=== PATIENT | male | born 1945 | race Caucasian/White ===

== ENCOUNTER 2016-06-26 20:35 | Emergency (ER) | payer MEDICARE, OTHER ==
[2016-06-26] MEDS ORDERED: DIAZEPAM 5 MG/ML SYRG IM ONE (20:59)
[2016-06-26] MEDS ORDERED: KETOROLAC TROMETHAMINE 60 MG/2 ML VIAL IM ONE ×2 (20:59→21:04)
[2016-06-26] MEDS ORDERED: DIAZEPAM 5 MG/ML SYRG ONE (21:03)
--- OUTSIDE RECORDS SUMMARY | 2016-06-26 21:36 | XMS REPORT | Continuity of Care Document ---
:1945 Author Organization [facility] ([facility]) Address [address] [place] [address] Phone [phone] Care Team Providers Name Role Phone Savannah Whitaker Primary Care Provider [phone] Source Comments This disclosure is being made pursuant to the Care Everywhere program, applicable federal and state laws, and may not contain all informaitonavailable regarding this patient.[facility] ([facility]) Active Allergies and Adverse Reactions Allergen Noted Date Severity Reactions Comments Latex, Natural Rubber Blisters Current Medications Prescription Sig. Disp. Refills Start Date End Date Status MULTIVITAMINS take 1 Cap by Active (MULTIVITAMIN PO) mouth daily. acetaminophen 500 mg Take 500 mg by Active tablet mouth every 6 hours as needed. B INFANTIS/B ANI/B ANA/B Take by mouth. Active BIFID (PROBIOTIC 4X PO) SERTraline 100 mg tablet Take 50 mg by Active mouth daily. 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 Resolved Problems Problem Noted Date Resolved Date Pain in limb 07/07/2007 09/04/2013 Immunizations Name Dates Previously Given Next Due Hepatitis B, unspecified 07/07/2007 Pneumococcal, unspecified 07/07/2007 Social History Tobacco Use Types Packs/Day Years Used Date Former Smoker Last Filed Vital Signs Vital Sign Reading Time Taken Blood Pressure 155/80 10/03/2011 1:07 PM CDT Pulse 81 10/03/2011 1:07 PM CDT Temperature 36 C (96.8 F) 10/03/2011 1:07 PM CDT Respiratory Rate 18 09/27/2009 3:45 PM CDT Height 1.78 m (5' 10.08") 10/15/2009 9:06 AM CDT Weight 68 kg (149 lb 14.6 oz) 10/15/2009 9:06 AM CDT Body Mass Index 21.46 10/15/2009 9:06 AM CDT Oxygen Saturation 94% 09/27/2009 3:45 PM CDT Plan of Care Health Maintenance Due Date Last Done Comments Tdap Vaccine 07/10/1956 Lipid Disorder Screening 07/10/1961 Td Vaccine 07/10/1961 Colonoscopy 07/10/1993 Prostate Cancer Screening 07/10/1993 Zoster Vaccine 2003 Hepatitis B Vaccine (2 of 3 - Primary 08/04/2007 07/07/2007 Series) Pneumococcal Vaccine (1 of 2 - PCV13) 07/10/2008 HCC Annual Coding 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
[2016-06-26] MEDS ORDERED: HYDROcodone/ACETAMINOPHEN 1 EACH TABLET PO ONE ×2 (21:48→22:03)
[2016-06-26] MEDS ORDERED: HYDROcodone/ACETAMINOPHEN 1 EACH TABLET ONE ×2 (21:57→22:10)
--- NOTE | 2016-06-26 21:59 | ERNOTE ---
Medical Problem HPI - Narrative Date of Service: 06/26/16 - General Chief Complaint: Neck Pain/Injury Time Seen by Provider: 06/26/16 20:50 Source: patient, RN notes reviewed Exam Limitations: no limitations - Immun/Allergies/Home Medications Immunizations: IMMUNIZATION HX Immunizations Up to Date Yes History of Influenza Vaccine No Hx Pneumococcal Vaccination No Allergies/Adverse Reactions: Allergies latex Allergy (Mild, Verified 04/17/15 14:22) Home Medications: HOME MEDICATIONS Sertraline HCl [Zoloft] 50 mg PO DAILY #30 tablet 10/17/13 [Last Taken 04/15/15] Aspirin [Lo-Dose Aspirin EC] 81 mg PO DAILY 06/26/16 [Last Taken Unknown] Cholecalciferol (Vitamin D3) [Vitamin D] 2,000 unit PO DAILY 06/26/16 [Last Taken Unknown] Cyclobenzaprine HCl [Flexeril] 10 mg PO TID PRN #30 tab 06/26/16 [Last Taken Unknown] HYDROcodone/ACETAMINOPHEN [Linwood 5-325] 1 - 2 tab PO Q6H PRN #20 tab 06/26/16 [ Last Taken Unknown] Ciprofloxacin HCl [Cipro] 500 mg PO BID #20 tab 06/27/16 [Last Taken Unknown] oxyCODONE HCL/ACETAMINOPHEN [Percocet 5 MG/325 MG] 1 tab PO QID #14 tablet 06/27 [Last Taken Unknown] - History of Present History Narrative: 71 y/o male ambulatory to the ED with neck pain that began without incident 2 days ago and reports that it has now "locked up" on him. He also reports a headache. He has not been taking anything for his symptoms. Date (Duration): 06/24/16 Timing: constant, getting worse Severity: severe Modifying Factors - (Improves): Present: rest Modifying Factors - (Worsens): Present: movement Review of Systems - Review of Systems Constitutional: Absent: recent illness, fever, chills EYE: Absent: eye pain, vision changes ENT: Absent: ear pain, nose congestion, sore throat Respiratory: Absent: shortness of breath, cough Cardiology: Absent: chest pain, palpitations Gastrointestinal/Abdominal: Absent: nausea, vomiting, abdominal pain, eating less, drinking less Genitourinary: Present: no symptoms reported Musculoskeletal: Present: muscle pain, neck pain. Absent: back pain, joint pain Skin: Absent: rash, lesions, lumps Neurological: Present: headache. Absent: dizziness/light-headedness, weakness, numbness, tingling Endocrine: Present: no symptoms reported Hematologic/Lymphatic: Present: no symptoms reported Psych: Present: no symptoms reported - Patient's Past Medical History Patient History - Medical: No pertinent hx Patient History - Cardiac/Respiratory: Deep Vein Thrombosis Patient History - Cancer: No Hx of Cancer Patient History - Surgical Procedures: Appendectomy, Back Surgery, Pneumothorax , Orthopedic Patient History - Other: None - Social History Living Situations: spouse Abuse History: No History of abuse Psych History: No pertinent hx Does anyone smoke in the home?: No Smoking Status: Former smoker Alcohol Use: none Drug Use: none - Immunizations Immunizations Up to Date: Yes Hx Pneumococcal Vaccination: No History of Influenza Vaccine: No Physical Exam - Physical Exam General Appearance: Present: wd/wn, alert, no apparent distress, other - noted to be uncomfortable Eye Exam: Normal inspection: bilateral, PERRL: bilateral Ears, Nose, Throat: Present: normal ENT inspection Neck: Present: supple, limited range of motion, tender lateral Respiratory: Present: no respiratory distress, normal breath sounds, no accessory muscle use, lungs clear Cardiovascular/Chest: Present: regular rate, rhythm, no murmur, normal peripheral pulses Back Exam: Present: normal inspection, no vertebral tenderness Extremity Exam: Present: normal inspection, normal range of motion Neurological Exam: Present: alert, oriented, normal mood/affect, no motor/ sensory deficits Skin Exam: Present: normal color, warm/dry ED Progress - Vital Signs Patient's Vital Signs:: I have reviewed the patient's vital signs. Vital Signs: Vital Signs 06/26/16 20:36 Temperature 36.4 C L Pulse Rate 60 Respiratory 14 Rate Blood Pressure 147/92 O2 Sat by Pulse 98 Oximetry - Progress/Reassessment Chief Complaint: Neck Pain/Injury Progress:: Improved Departure - Departure Clinical Impression: Neck pain, acute Disposition: Home self-care Condition: Stable Instructions: Cervical Sprain, [id number], Form - Excuse from Work, School, or Physical Activity Additional Instructions: Ice or heat to sore area as needed Do not take Tylenol with Linwood Linwood may cause drowsiness, dizziness, nausea, constipation Flexeril will also cause drowsiness See you doctor if symptoms have not improved in 1 week - or return if symptoms worsen Prescriptions: Cyclobenzaprine HCl [Flexeril] 10 mg PO TID PRN #30 tab PRN Reason: MUSCLE SPASMS HYDROcodone/ACETAMINOPHEN [Linwood 5-325] 1 - 2 tab PO Q6H PRN #20 tab PRN Reason: Pain
[2016-06-26] MEDS ORDERED: CYCLOBENZAPRINE HCL 10 MG TABLET PO ONE (22:02)
[2016-06-26] MEDS ORDERED: CYCLOBENZAPRINE HCL 10 MG TABLET ONE (22:10)
[2016-06-26 22:16] VITALS: BP 133/80
== END 2016-06-26 22:21 | disposition home or self-care (01) ==
LOC: ER 20:35
DX: M54.2 Cervicalgia (principal); Z86.718 Personal history of other venous thrombosis and embolism; Z87.891 Personal history of nicotine dependence

== ENCOUNTER 2016-06-27 13:30 | Emergency (ER) | payer MEDICARE, OTHER ==
--- OUTSIDE RECORDS SUMMARY | 2016-06-27 14:22 | XMS REPORT | Continuity of Care Document ---
:1945 Author Organization [facility] ([facility]) Address [address] [place] [address] Phone [phone] Care Team Providers Name Role Phone Savannah Whitaker Primary Care Provider [phone] Source Comments This disclosure is being made pursuant to the Care Everywhere program, applicable federal and state laws, and may not contain all informaitonavailable regarding this patient.[facility] ([facility]) Active Allergies and Adverse Reactions Allergen Noted [...]
[2016-06-27] MEDS ORDERED: ORPHENADRINE CITRATE 30 MG/ML VIAL IM ONE (14:28)
[2016-06-27] MEDS ORDERED: predniSONE 20 MG TABLET PO ONE (14:28)
[2016-06-27] MEDS ORDERED: predniSONE 20 MG TABLET ONE (14:45)
[2016-06-27] MEDS ORDERED: ORPHENADRINE CITRATE 30 MG/ML VIAL ONE (14:45)
[2016-06-27 15:00] LABS: Hematocrit 43.9 % (42.0-52.0); Hemoglobin 14.8 gm/dL (13.5-18.0); Mean Cell Volume 87.6 fl (78-100); Mean Corpuscular Hemoglobin 29.5 pg (27-31); Mean Corpuscular Hgb Conc 33.7 g/dl (32-36); Mean Platelet Volume 9.4 fl (6.0-9.5); Neutrophil # 6.6 K/mm3 (1.3-6.0); Neutrophil % 85.6 % (42-75.0); Platelet Count 161 K/mm3 (150-450); Red Blood Count 5.01 M/mm3 (4.7-6.0); Red Cell Distribution Width 13.7 % (11.5-14.0); White Blood Count 7.8 K/mm3 (4.0-10.5)
[2016-06-27 15:26] LABS: Albumin * 3.3 gm/dl (3.4-5.0); Anion Gap 13.6 mmol/L (6.8-13.8); BUN/Creatinine Ratio 11.7 (9.0-21.6); Bilirubin, Total 0.4 mg/dL (0.0-1.1); Ca. Corrected For Albumin 10.3 mg/dL (8.4-10.2); Calcium * 10.1 mg/dL (7.9-10.9); Carbon Dioxide 27.1 mmol/L (24-32.6); Potassium 3.7 mmol/L (3.4-4.6); Total Protein 7.9 gm/dL (6.2-8.2)
[2016-06-27 15:28] LABS: CRP 17.3 mg/dL (0.0-0.9)
[2016-06-27 15:30] LABS: Urine Bilirubin Negative (NEGATIVE); Urine Blood 250 /ul (NEGATIVE); Urine Ketone Negative (NEGATIVE); Urine Protein 15 mg/dL (NEGATIVE); Urine Urobilinogen Normal (NORMAL)
[2016-06-27 15:38] LABS: Urine Appearance Slightly Cloudy; Urine Color Yellow; Urine Nitrite Positive (NEGATIVE)
[2016-06-27 15:39] LABS: Urine Bacteria 4+
[2016-06-27] MEDS ORDERED: LIDOCAINE HCL 20 ML VIAL ONE (16:06)
[2016-06-27] MEDS ORDERED: oxyCODONE HCL/ACETAMINOPHEN 1 TAB TABLET ONE (16:17)
[2016-06-27] MEDS ORDERED: oxyCODONE HCL/ACETAMINOPHEN 1 TAB TABLET PO ONE (16:17)
[2016-06-27] MEDS ORDERED: NORMAL SALINE 1,000 ML in NORMAL SALINE 1,000 ML IV ONE (16:47)
[2016-06-27] MEDS ORDERED: diphenhydrAMINE HCL 50 MG/ML VIAL IV ONE (16:47)
[2016-06-27] MEDS ORDERED: METOCLOPRAMIDE HCL 5 MG/ML VIAL IV ONE (16:47)
[2016-06-27] MEDS ORDERED: diphenhydrAMINE HCL 50 MG/ML VIAL ONE (17:02)
[2016-06-27] MEDS ORDERED: METOCLOPRAMIDE HCL 5 MG/ML VIAL ONE (17:02)
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
[2016-06-27] MEDS ORDERED: KETOROLAC TROMETHAMINE 30 MG/ML VIAL IV ONE (17:04)
[2016-06-27] MEDS ORDERED: KETOROLAC TROMETHAMINE 30 MG/ML VIAL ONE (17:12)
[2016-06-27] MEDS ORDERED: HYDROmorphone HCL 1 MG/ML DISP.SYRIN IV ONE (18:29)
[2016-06-27] MEDS ORDERED: HYDROmorphone HCL 1 MG/ML DISP.SYRIN ONE (18:30)
[2016-06-27 20:14] LABS: Body Fluid Appearance CLEAR (CLEAR); Body Fluid Color COLORLESS (COLORLESS); Body Fluid WBC 0 /uL (0-1000)
[2016-06-27 20:21] VITALS: BP 127/73
[2016-06-27 20:34] LABS: CSF Appearance Clear (CLEAR); CSF RBC 0 /uL (0-10); CSF WBC 5 /uL (0-10)
[2016-06-27 20:35] LABS: CSF Lymphocytes 0 % (0-100)
[2016-06-27 20:36] LABS: CSF Color Colorless (COLORLESS)
[2016-06-30 12:36] LABS: N.Mening. Grps C & W NOT DETECTED
== END 2016-06-27 20:28 | disposition home or self-care (01) ==
LOC: ER 13:30
PROC: 009U3ZX Drainage of Spinal Canal, Percutaneous Approach, Diagnostic (ICD-10-PCS; principal; 2016-06-27)
DX: M54.2 Cervicalgia (principal); M43.6 Torticollis; N30.01 Acute cystitis with hematuria